=== PATIENT | male | born 1965 | race Caucasian/White ===

== ENCOUNTER 2022-10-14 11:52 | Emergency (ER) | payer BC, SELFPAY ==
[2022-10-14] VITALS (11 sets, daily range): BP systolic 104–125; BP diastolic 74–82; PULSE 57–84; RESP 16; TEMP 36.6; O2SAT 94–99; BMI 33.5
--- NOTE | 2022-10-14 12:46 | CRLHL7_ITS ---
For Patients: As a result of the Cures Act, medical imaging exams and procedure reports are released immediately into your electronic medical record. You may view this report before your referring provider. If you have questions, please contact your health care provider. INDICATION: Arrhythmia. COMPARISON: None. TECHNIQUE: AP portable chest. FINDINGS: The cardiomediastinal silhouette and pulmonary vasculature are within normal limits. The lungs are clear. No pleural effusion or pneumothorax is identified. No acute bone or joint abnormality is seen. IMPRESSION: No acute abnormality. Dictated by Germán Hatfield MD @ 10/14/2022 1:46:35 PM (Electronically Signed)
--- NOTE | 2022-10-14 12:48 | ED_ITS ---
HPI - General Adult General Chief complaint: Chest Pain Stated complaint: chest pain Time Seen by Provider: 10/14/22 12:35 History of Present Illness HPI narrative: Patient is a 57-year-old male has had a stent in the past, he did not have an KS, he had 100% occlusion. He recent CT changed off flecainide and switched to metoprolol and see Javier pop and valsartan, by his information technology security manager at [facility]. He has not had a recent heart scanner study other than an echo that showed ejection fraction about 30%. He notices on his apple watch his heart rate occasional be in the 40s, but he has been in the 70s here. He occasionally gets lightheaded, but he has not had significant chest pain. He has had occasional pressure in his chest. He apparently had no other blockages other than the 1 that was stented. He has had no fevers chills or cough. Related Data Home Medications Medication Instructions Recorded Confirmed ezetimibe 10 mg tablet 10 mg PO DAILY 10/14/22 10/14/22 metoprolol succinate 25 mg 25 mg PO DAILY 10/14/22 10/14/22 tablet,extended release 24 hr rosuvastatin 20 mg tablet 20 mg PO DAILY 10/14/22 10/14/22 sacubitril 97 mg-valsartan 103 mg 1 tab PO BID 10/14/22 10/14/22 tablet (Entresto) spironolactone 25 mg tablet 25 mg PO DAILY 10/14/22 10/14/22 Allergies Allergy/AdvReac Type Severity Reaction Status Date / Time Penicillins Allergy Severe Rash Verified 10/14/22 12:06 Review of Systems Status of ROS: Reports: 6 or more systems reviewed and unremarkable except as noted in History and below [facility] Social History Smoking Status: Former smoker Do you use any of these nicotine containing products: None Second hand tobacco smoke exposure: No How often do you have a drink containing alcohol: 2-4 times a month How many standard drinks containing alcohol do you have on a typical day: 3 or 4 AUDIT-C Alcohol total score: 3 Non-prescribed substance use: denies use service: No Exam Narrative: Exam Narrative: Objective: Vital signs unremarkable in general patient is no apparent distress he is alert orient x3 HEENT is unremarkable Chest is clear Heart rhythm regular without murmur Abdomen nontender not no rebound or masses Extremities are no edema neurologic nonfocal good peripheral perfusion noted Const: Vital Signs, click to edit/add: Vital Signs - 24 hr 10/14/22 12:07 10/14/22 12:07 10/14/22 12:26 Temperature 97.9 F Pulse Rate 67 Pulse Rate [Pulse Oximeter] 84 Respiratory Rate 16 Blood Pressure 118/74 Blood Pressure [Ri ght Upper Arm] 125/82 Pulse Oximetry 98 97 94 Oxygen Delivery Me thod Room Air 10/14/22 12:27 10/14/22 12:30 10/14/22 12:31 Temperature Pulse Rate 62 72 59 L Pulse Rate [Pulse Oximeter] Respiratory Rate Blood Pressure 104/76 Blood Pressure [Ri ght Upper Arm] Pulse Oximetry 96 96 95 Oxygen Delivery Me thod 10/14/22 13:00 10/14/22 13:02 10/14/22 13:03 Temperature Pulse Rate 64 76 71 Pulse Rate [Pulse Oximeter] Respiratory Rate Blood Pressure 114/74 Blood Pressure [Ri ght Upper Arm] Pulse Oximetry 95 95 95 Oxygen Delivery Me thod 10/14/22 14:25 10/14/22 14:30 10/14/22 14:32 Temperature Pulse Rate 70 57 L 67 Pulse Rate [Pulse Oximeter] Respiratory Rate Blood Pressure 109/78 Blood Pressure [Ri ght Upper Arm] Pulse Oximetry 97 99 97 Oxygen Delivery Me thod Course Vital Signs Vital signs: Initial Vital Signs Temperature 97.9 F 10/14/22 12:07 Temperature Source Temporal Artery Scan 10/14/22 12:07 Pulse Rate 84 10/14/22 12:07 Pulse Rhythm Regular 10/14/22 12:07 Pulse Strength 3+ Normal 10/14/22 12:07 Respiratory Rate 16 10/14/22 12:07 Blood Pressure 125/82 10/14/22 12:07 Blood Pressure Mean 96 10/14/22 12:07 Blood Pressure Position Sitting 10/14/22 12:07 Pulse Oximetry 98 10/14/22 12:07 Oxygen Delivery Method Room Air 10/14/22 12:07 Vital Signs Temperature 97.9 F 10/14/22 12:07 Pulse Rate 84 10/14/22 12:07 Respiratory Rate 16 10/14/22 12:07 Blood Pressure 125/82 10/14/22 12:07 Pulse Oximetry 98 10/14/22 12:07 Oxygen Delivery Method Room Air 10/14/22 12:07 Temperature 97.9 F 10/14/22 12:07 Pulse Rate 67 10/14/22 14:32 Respiratory Rate 16 10/14/22 12:07 Blood Pressure 109/78 10/14/22 14:32 Pulse Oximetry 97 10/14/22 14:32 Oxygen Delivery Method Room Air 10/14/22 12:07 Medical Decision Making MDM Narrative Medical decision making narrative: Patient is a 57 year white male has had a stent in the past he presents with chest pressure he has been started on metoprolol and another heart failure medication, the patient has been stop from flecainide he does have some PVCs noted on his EKG and monitoring otherwise he appears to have no ischemic changes noted. Will check serial troponins, keep him on telemetry, watch his heart rate. Check electrolytes and labs. Will try and set him up to see his information technology security manager in follow-up. If his heart rate does not seem load I think we can keep him on same medications as he is only on 25 mg a day of metoprolol. We are trying to get an appointment as soon as possible to see his information technology security manager as well. Addendum: The patient has had no bradycardia, he has occasional PVCs. His follow-up EKG looks unremarkable other than PVCs, and his heart rate has been in the 70s pretty much throughout his hospital stay. His 2nd troponin is 0. I think he can safely be discharged home, is a follow-up visit we scheduled for him on 10/16. Light activity in the interim continue present medications return if problems or concerns sooner. Lab Data Labs: Lab Results 10/14/22 10/14/22 10/14/22 Range/Units 12:25 12:47 14:20 WBC 8.52 (4.50-11.00) K/uL RBC 4.40 (4.30-5.90) m/uL Hgb 14.1 (13.5-17.5) gm/dL Hct 40.9 (37.0-53.0) % MCV 93 (80-100) fL MCH 32 (26-34) pg MCHC 35 (32-36) gm/dL RDW Coeff of Luda 12.2 (11.5-15.5) % Plt Count 291 (140-440) K/uL Neut % (Auto) 71.5 (42.0-72.0) % Lymph % (Auto) 20.0 (20-44) % [place] % (Auto) 6.5 (0.0-11.0) % Eos % (Auto) 1.2 (0.0-7.0) % Baso % (Auto) 0.7 (0.0-3.0) % Neut # (Auto) 6.10 (1.7-7.0) K/uL Lymph # (Auto) 1.70 (0.90-2.90) K/uL [place] # (Auto) 0.60 (0.00-0.90) K/UL Eos # (Auto) 0.10 (0.00-0.50) K/uL Baso # (Auto) 0.06 (0.00-0.30) K/uL Sodium 137 (135-149) mmol/L Potassium 4.1 (3.6-5.1) mmol/L Chloride 104 (96-114) mmol/L Carbon Dioxide 25 (20-32) mmol/L BUN 13 (7-30) mg/dL Creatinine 0.7 (0.5-1.5) mg/dL Estimated Creat Clear 125.50 Estimated GFR 108 ml/min Glucose 110 (60-115) mg/dL Calcium 9.1 (8.4-10.6) mg/dL NT-Pro-B Natriuret Pep 136 pg/mL POC Troponin I 0.01 0.00 L (0.01-0.04) ng/ml Discharge Plan Discharge Clinical Impression: Frequent PVCs, Coronary artery disease Patient Disposition: Home w/ Parent or Adult Condition: Stable Additional Instructions: Light activity recommended, continue present medications, follow-up with information technology security manager as soon as possible, would recommend return to ED if problems or concerns or difficulty he was comfortable plan will follow up as directed thanks Follow up appointment is scheduled at the [facility] on 10/16 with a 1:45pm appointment time. If you have any questions or need to reschedule, please call [phone]. [address] [facility] [address] [place] [id number] Activity Level: Light activity Discharge Diet: Regular Prescriptions: No Action spironolactone 25 mg tablet 25 mg PO DAILY metoprolol succinate 25 mg tablet extended release 24 hr 25 mg PO DAILY ezetimibe 10 mg tablet 10 mg PO DAILY rosuvastatin 20 mg tablet 20 mg PO DAILY Entresto 97-103 mg tablet 1 tab PO BID Stand Alone Forms: [employer] Info Instructions
[2022-10-14 12:49] LABS: Troponin, Point-of-Care* 0.01 ng/ml (0.01-0.04)
[2022-10-14 13:03] LABS: Basophils Absolute Auto 0.06 K/uL (0.00-0.30); Basophils Percent Auto 0.7 % (0.0-3.0); Eosinophils Percent Auto 1.2 % (0.0-7.0); Hematocrit 40.9 % (37.0-53.0); Hemoglobin* 14.1 gm/dL (13.5-17.5); Immature Granulocytes Abs Auto 0.01 K/uL (0.00-0.30); Immature Granulocytes Pct Auto 0.1 %; Mean Corpuscular HGB Conc 35 gm/dL (32-36); Mean Corpuscular Hemoglobin 32 pg (26-34); Mean Corpuscular Volume 93 fL (80-100); Monocytes Percent Auto 6.5 % (0.0-11.0); Neutrophils Percent Auto 71.5 % (42.0-72.0); Platelet Count* 291 K/uL (140-440); RDW Coefficient of Variation % 12.2 % (11.5-15.5); White Blood Count* 8.52 K/uL (4.50-11.00)
[2022-10-14] MEDS: ASPIRIN 81 MG TAB.CHEW 324 MG PO (13:10)
[2022-10-14 13:28] LABS: Chloride* 104 mmol/L (96-114); Potassium* 4.1 mmol/L (3.6-5.1); Sodium* 137 mmol/L (135-149)
[2022-10-14 13:30] LABS: Creatinine* 0.7 mg/dL (0.5-1.5); Estimated Glomerular Filt Rate 108 ml/min
[2022-10-14 13:31] LABS: Blood Urea Nitrogen* 13 mg/dL (7-30); Calcium* 9.1 mg/dL (8.4-10.6); Carbon Dioxide* 25 mmol/L (20-32); Glucose* 110 mg/dL (60-115)
[2022-10-14 13:41] LABS: NT Pro B Type NatriureticPept* 136 pg/mL
[2022-10-14 13:44] LABS: Slide Review Reflex No
== END 2022-10-14 14:46 | disposition home or self-care (01) ==
PROVIDERS: Emergency Provider Family Medicine; PCP Family Medicine
DX: I49.3 Ventricular premature depolarization (principal); I25.10 Atherosclerotic heart disease of native coronary artery without angina pectoris
CPT/HCPCS: 36415; 71045; 80048; 83880; 84484; 85025; 93005; 94761; 99284; 99285; A9270